=== PATIENT | male | born 1945 | race Caucasian/White ===

== ENCOUNTER 2017-09-03 11:58 | Inpatient (IN) | payer MEDICARE, OTHER ==
[~2017-09-03] VITALS: Ht 180.3 cm; Wt 90.4 kg
[2017-09-03] MEDS ORDERED: heparin 1,000 UNITS/NS 500ml 0 ML ONE (12:03)
[2017-09-03] MEDS ORDERED: iohexol 350 MG/1 ML 200ml bottle ONE (12:03)
[2017-09-03] MEDS ORDERED: LIDOcaine 1%/PF (10mg/ml) 5ml vial ONE (12:03)
[2017-09-03] MEDS ORDERED: midazolam 2 mg/2 ml injection ONE (12:03)
[2017-09-03] MEDS ORDERED: fentaNYL/PF 50MCG/1 ML 2ML syringe ONE (12:03)
[2017-09-03] MEDS ORDERED: aspirin 81mg tab.chew PO ONE (12:05)
[2017-09-03] MEDS ORDERED: heparin 10,000 units/1 ML INJ IV ONE (12:10)
[2017-09-03 12:12] LABS: BASOPHILS # (AUTO) 0.1 X10'3 (0-0.2); BASOPHILS % (AUTO) 0.7 % (0-1); EOSINOPHILS # (AUTO) 0.1 X10'3 (0-0.9); EOSINOPHILS % (AUTO) 0.8 % (0-6); HEMATOCRIT 41.8 % (42.0-52.0); HEMOGLOBIN 14.1 g/dl (14.0-17.9); LYMPHOCYTES # (AUTO) 1.8 X10'3 (1.1-4.8); LYMPHOCYTES % (AUTO) 15.8 % (21-51); MEAN CORPUSCULAR HGB CONC 33.7 % (33.0-36.5); MEAN PLATELET VOLUME 9.5 FL (7.4-10.4); MONOCYTES # (AUTO) 1.1 X10'3 (0-0.9); MONOCYTES % (AUTO) 10.1 % (2-12); NEUTROPHILS # (AUTO) 8.2 X10'3 (1.8-7.7); NEUTROPHILS % (AUTO) 72.6 % (42-75); PLATELET COUNT 175 X10'3 (140-440); RED BLOOD COUNT 4.54 X10'6 (4.70-6.10); RED CELL DISTRIBUTION WIDTH 12.6 % (11.5-14.5); WHITE BLOOD COUNT 11.3 X10'3 (4.5-11.0)
[2017-09-03 12:35] LABS: ALANINE AMINOTRANSFERASE 42 U/L (12-78); ALBUMIN 3.9 G/DL (3.4-5.0); ALBUMIN/GLOBULIN RATIO 1.1 (1.1-1.5); ALKALINE PHOSPHATASE 84 IU/L (46-116); ANION GAP 9 (8-16); ASPARTATE AMINO TRANSFERASE 73 U/L (10-37); BLOOD UREA NITROGEN 29 MG/DL (7-18); BUN/CREATININE RATIO 24.2 (5.4-32.0); CHLORIDE 101 MMOL/L (99-107); GLUCOSE 143 MG/DL (70-104); MAGNESIUM 2.1 MG/DL (1.5-2.4); POTASSIUM 4.2 MMOL/L (3.5-5.1); SODIUM 137 MMOL/L (135-145); TOTAL CARBON DIOXIDE 26.9 MMOL/L (24-32); TOTAL PROTEIN 7.4 G/DL (6.4-8.2); eGFR 60 ML/MIN
[2017-09-03 12:49] LABS: PARTIAL THROMBOPLASTIN TIME 27 SECONDS (22-32); PROTHROMBIN TIME 10.6 SECONDS (9.0-12.0)
[2017-09-03] MEDS ORDERED: normal saline 1000ML IV soln IV ONE (12:50)
[2017-09-03] MEDS ORDERED: tirofiban 5mg in NS 100mL 100 ML IV SCH (13:00)
[2017-09-03] MEDS: metoprolol tartrate 25mg tablet PO SCH ×2 (13:00→20:00)
[2017-09-03] MEDS ORDERED: magnesium 4gm in 100ml NS 100 ML IV PRN (13:10)
[2017-09-03] MEDS ORDERED: potassium Cl 40MEQ/NS 500ml 500 ML IV PRN ×2 (13:10)
[2017-09-03] MEDS ORDERED: magnesium hydroxide 30ml (MOM) UD suspension PO PRN (13:10)
[2017-09-03] MEDS ORDERED: morphine 2 MG/ML inj. syringe IV PRN ×2 (13:10)
[2017-09-03] MEDS ORDERED: acetaminophen 325mg tablet PO PRN (13:10)
[2017-09-03] MEDS ORDERED: magnesium 2GM in 50ml NS 50 ML IV PRN (13:10)
[2017-09-03] MEDS ORDERED: mag hydrox/Alum hydrox/simeth 30ml oral suspension PO PRN (13:10)
[2017-09-03] MEDS ORDERED: ondansetron/PF 4mg/2ml inj IV PRN (13:10)
[2017-09-03] MEDS ORDERED: potassium Cl 20 mEq SR tablet PO PRN ×2 (13:10)
[2017-09-03] MEDS ORDERED: glucagon, human recombinant 1mg kit SUBCUT PRN (13:20)
[2017-09-03] MEDS ORDERED: dextrose ORAL solution 15 GM/59 ML bottle PO PRN ×2 (13:20)
[2017-09-03] MEDS ORDERED: dextrose 50%-water 50ml dispensing syringe IV PRN ×2 (13:20)
[2017-09-03] MEDS ORDERED: MESSAGE TO PHARMACY PO ONE (13:20)
[2017-09-03 13:22] LABS: CHOL/HDL RATIO 2.1 (0.00-4.99); CHOLESTEROL 119 MG/DL (0-200); HDL CHOLESTEROL 57 MG/DL (35-60); LDL CHOLESTEROL 63 MG/DL (50-100); TRIGLYCERIDES 59 MG/DL (20-135)
[2017-09-03] MEDS: nitroGLYCERIN 0.4mg/hour patch TD SCH (14:31)
[2017-09-03 14:58] LABS: CLARITY,URINE CLEAR (Clear); COLOR,URINE YELLOW (Yellow); GLUCOSE, URINE NEGATIVE (Neg); KETONES,URINE NEGATIVE (Neg); LEUKOCYTE ESTERASE ,URINE NEGATIVE (Neg); NITRITES, URINE NEGATIVE (Neg); OCCULT BLOOD,URINE NEGATIVE (Neg); PH,URINE 5.5 (4.8-8.0); PROTEIN,URINE NEGATIVE (Neg); UROBILINOGEN,URINE 0.2 E.U/dL (0.2-1.0)
[2017-09-03 14:59] LABS: UA COLLECTION TYPE CLN CATCH MIDSTREAM
[2017-09-03] MEDS: cefTRIAXone 1g/NS 100ml IVPB 100 ML IV SCH (15:11)
[2017-09-03] MEDS ORDERED: LOSA25TA96 PO (15:26)
[2017-09-03] MEDS ORDERED: METF500T PO (15:26)
[2017-09-03] MEDS ORDERED: ATOR40TA PO (15:27)
[2017-09-03 15:30] VITALS: BP 123/79
[2017-09-03] MEDS ORDERED: OMEP20TA23 PO (15:30)
[2017-09-03 15:39] LABS: HEMOGLOBIN A1C 6.5 % (4.5-6.2)
[2017-09-03 19:00] VITALS: BP 113/73
[2017-09-03] MEDS: heparin 10,000 units/1 ML INJ IV PRN (20:57)
[2017-09-03] MEDS: insulin glargine (Lantus) pen - multi-dose SQ SCH (21:00)
[2017-09-03] MEDS: gabapentin 300mg capsule PO SCH (21:00)
[2017-09-03] MEDS ORDERED: pravastatin 10mg tablet PO SCH (21:00)
[2017-09-03 22:59] VITALS: BP 93/52
[2017-09-04 03:00] VITALS: BP 102/61
[2017-09-04 03:40] LABS: BASOPHILS # (AUTO) 0.1 X10'3 (0-0.2); BASOPHILS % (AUTO) 1.2 % (0-1); EOSINOPHILS # (AUTO) 0.1 X10'3 (0-0.9); EOSINOPHILS % (AUTO) 1.5 % (0-6); HEMATOCRIT 34.7 % (42.0-52.0); HEMOGLOBIN 11.9 g/dl (14.0-17.9); LYMPHOCYTES # (AUTO) 1.8 X10'3 (1.1-4.8); LYMPHOCYTES % (AUTO) 20.7 % (21-51); MEAN CORPUSCULAR HEMOGLOBIN 31.3 PG (27.0-31.0); MEAN CORPUSCULAR HGB CONC 34.3 % (33.0-36.5); MEAN CORPUSCULAR VOLUME 91.3 FL (78-98); MEAN PLATELET VOLUME 9.9 FL (7.4-10.4); MONOCYTES # (AUTO) 0.8 X10'3 (0-0.9); MONOCYTES % (AUTO) 9.3 % (2-12); NEUTROPHILS # (AUTO) 5.8 X10'3 (1.8-7.7); NEUTROPHILS % (AUTO) 67.3 % (42-75); PLATELET COUNT 144 X10'3 (140-440); RED CELL DISTRIBUTION WIDTH 12.6 % (11.5-14.5); WHITE BLOOD COUNT 8.6 X10'3 (4.5-11.0)
[2017-09-04 03:58] LABS: ALANINE AMINOTRANSFERASE 33 U/L (12-78); ALBUMIN 3.2 G/DL (3.4-5.0); ALKALINE PHOSPHATASE 68 IU/L (46-116); ANION GAP 7 (8-16); ASPARTATE AMINO TRANSFERASE 51 U/L (10-37); BILIRUBIN,TOTAL 0.7 MG/DL (0.1-1.0); BLOOD UREA NITROGEN 28 MG/DL (7-18); BUN/CREATININE RATIO 21.5 (5.4-32.0); CALCIUM 8.3 MG/DL (8.5-10.1); CHLORIDE 103 MMOL/L (99-107); CHOL/HDL RATIO 2.4 (0.00-4.99); CHOLESTEROL 106 MG/DL (0-200); GLUCOSE 147 MG/DL (70-104); HDL CHOLESTEROL 45 MG/DL (35-60); LDL CHOLESTEROL 52 MG/DL (50-100); POTASSIUM 4.2 MMOL/L (3.5-5.1); SODIUM 136 MMOL/L (135-145); TOTAL CARBON DIOXIDE 26.3 MMOL/L (24-32); TOTAL PROTEIN 6.4 G/DL (6.4-8.2); TRIGLYCERIDES 66 MG/DL (20-135); eGFR 54 ML/MIN
[2017-09-04 04:17] LABS: TROPONIN I 8.37 NG/ML (0.0-0.05)
[2017-09-04 06:00] VITALS: BP 106/64
[2017-09-04] MEDS ORDERED: diphenhydrAMINE 50 mg/ml inj IV ONE ×2 (07:50→21:00)
[2017-09-04] MEDS ORDERED: methylPREDNISolone sod succ 125mg/2ml vial IV ONE ×2 (07:50→21:00)
[2017-09-04] MEDS: K and/or MAG REPLACEMENT MC SCH (08:00)
[2017-09-04] MEDS ORDERED: non-formulary drug (Atorvastatin Calcium* (Lipitor*) 1 TAB) PO SCH (08:00)
[2017-09-04] MEDS: gabapentin 300mg capsule PO SCH ×2 (08:30→20:55)
[2017-09-04] MEDS: metoprolol tartrate 25mg tablet PO SCH ×2 (08:30→20:56)
[2017-09-04] MEDS: nitroGLYCERIN 0.4mg/hour patch TD SCH (08:30)
[2017-09-04] MEDS: aspirin 81mg tab.chew PO SCH (08:30)
[2017-09-04] MEDS: atorvastatin 20mg tablet PO SCH (08:31)
[2017-09-04] MEDS: pantoprazole 40mg Tablet.DR PO SCH (08:53)
[2017-09-04] MEDS: heparin 10,000 units/1 ML INJ IV PRN (10:31)
[2017-09-04] MEDS: cefTRIAXone 1g/NS 100ml IVPB 100 ML IV SCH (10:50)
[2017-09-04 11:00] VITALS: BP 108/73
[2017-09-04 15:00] VITALS: BP 99/59
[2017-09-04 19:00] VITALS: BP 118/66
[2017-09-04] MEDS: insulin Lispro (HumaLOG) vial - multi-dose SQ SCH (19:02)
[2017-09-04] MEDS: lactobacillus rhamnosus 10,000 MMU CELLS/CAPSULE PO SCH (20:56)
[2017-09-04] MEDS: insulin glargine (Lantus) pen - multi-dose SQ SCH (21:06)
[2017-09-04 23:00] VITALS: BP 115/67
[2017-09-05] VITALS (16 sets, daily range): BP systolic 100–134; BP diastolic 59–87
[2017-09-05 05:05] LABS: BASOPHILS % (AUTO) 0.1 % (0-1); EOSINOPHILS # (AUTO) 0.2 X10'3 (0-0.9); EOSINOPHILS % (AUTO) 1.3 % (0-6); HEMATOCRIT 37.7 % (42.0-52.0); MEAN CORPUSCULAR HEMOGLOBIN 31.7 PG (27.0-31.0); MEAN CORPUSCULAR HGB CONC 34.4 % (33.0-36.5); MEAN CORPUSCULAR VOLUME 92.3 FL (78-98); MONOCYTES # (AUTO) 0.2 X10'3 (0-0.9); MONOCYTES % (AUTO) 1.9 % (2-12); NEUTROPHILS # (AUTO) 10.6 X10'3 (1.8-7.7); NEUTROPHILS % (AUTO) 88.7 % (42-75); PLATELET COUNT 155 X10'3 (140-440); RED BLOOD COUNT 4.09 X10'6 (4.70-6.10); RED CELL DISTRIBUTION WIDTH 12.4 % (11.5-14.5); WHITE BLOOD COUNT 11.9 X10'3 (4.5-11.0)
[2017-09-05 05:47] LABS: ALANINE AMINOTRANSFERASE 33 U/L (12-78); ALBUMIN 3.3 G/DL (3.4-5.0); ALBUMIN/GLOBULIN RATIO 0.9 (1.1-1.5); ALKALINE PHOSPHATASE 76 IU/L (46-116); ANION GAP 11 (8-16); ASPARTATE AMINO TRANSFERASE 32 U/L (10-37); BILIRUBIN,TOTAL 0.4 MG/DL (0.1-1.0); BLOOD UREA NITROGEN 33 MG/DL (7-18); BUN/CREATININE RATIO 25.4 (5.4-32.0); CALCIUM 8.9 MG/DL (8.5-10.1); CHLORIDE 103 MMOL/L (99-107); GLUCOSE 251 MG/DL (70-104); MAGNESIUM 2.1 MG/DL (1.5-2.4); POTASSIUM 4.2 MMOL/L (3.5-5.1); SODIUM 138 MMOL/L (135-145); TOTAL CARBON DIOXIDE 23.9 MMOL/L (24-32); TOTAL PROTEIN 7.1 G/DL (6.4-8.2); eGFR 54 ML/MIN
[2017-09-05] MEDS ORDERED: iohexol 350MG/ML 100ml bottle IV ONE (05:53)
[2017-09-05] MEDS ORDERED: LIDOcaine 1%/PF (10mg/ml) 5ml vial ONE (05:53)
[2017-09-05] MEDS ORDERED: diphenhydrAMINE 50 mg/ml inj IM ONE (06:00)
[2017-09-05] MEDS ORDERED: methylPREDNISolone sod succ 125mg/2ml vial IV ONE (06:00)
[2017-09-05] MEDS ORDERED: fentaNYL/PF 50MCG/1 ML 2ML syringe ONE (06:23)
[2017-09-05] MEDS ORDERED: midazolam 2 mg/2 ml injection ONE (06:24)
[2017-09-05] MEDS ORDERED: heparin 1,000unit/ml 10ml vial 10 ML ONE (06:45)
[2017-09-05] MEDS ORDERED: iohexol 350 MG/ML 50ML vial IV ONE (06:54)
[2017-09-05] MEDS ORDERED: ticagrelor 90mg tablet ONE (06:56)
[2017-09-05] MEDS ORDERED: proCHLORperazine 10 MG/2 ml inj IV PRN (07:40)
[2017-09-05] MEDS ORDERED: HYDROcodone/acetaminophen 5mg/325mg tablet PO PRN (07:40)
[2017-09-05] MEDS ORDERED: nitroGLYCERIN 0.4mg SUBLingual tab SL PRN (07:40)
[2017-09-05] MEDS ORDERED: aspirin 81mg tab.chew PO ONE (07:40)
[2017-09-05] MEDS ORDERED: HYDROcodone/acetaminophen 10/325mg tab PO PRN (07:40)
[2017-09-05] MEDS ORDERED: normal saline 1000ml 1,000 ML IV SCH (07:40)
[2017-09-05] MEDS ORDERED: OXAZEpam 15mg capsule PO PRN (07:40)
[2017-09-05] MEDS: cefTRIAXone 1g/NS 100ml IVPB 100 ML IV SCH (07:54)
[2017-09-05] MEDS: metoprolol tartrate 25mg tablet PO SCH (07:56)
[2017-09-05] MEDS: pantoprazole 40mg Tablet.DR PO SCH (07:56)
[2017-09-05] MEDS: lactobacillus rhamnosus 10,000 MMU CELLS/CAPSULE PO SCH (07:56)
[2017-09-05] MEDS: gabapentin 300mg capsule PO SCH (07:56)
[2017-09-05] MEDS: K and/or MAG REPLACEMENT MC SCH (08:00)
[2017-09-05] MEDS: nitroGLYCERIN 0.4mg/hour patch TD SCH (08:00)
[2017-09-05] MEDS: atorvastatin 20mg tablet PO SCH (08:04)
[2017-09-05] MEDS: aspirin 81mg tab.chew PO SCH (08:05)
[2017-09-05] MEDS: insulin Lispro (HumaLOG) vial - multi-dose SQ SCH (08:30)
[2017-09-05] MEDS ORDERED: METO25TA6 PO (10:09)
[2017-09-05] MEDS ORDERED: ASPI-1265 PO (10:09)
[2017-09-05] MEDS ORDERED: NITR0.4T51 SL (10:09)
[2017-09-05] MEDS ORDERED: PRAV20TA4 PO (10:09)
[2017-09-05] MEDS ORDERED: TICA90TA PO (10:09)
[2017-09-05] MEDS ORDERED: CEPH250T PO (10:11)
[2017-09-05] MEDS ORDERED: CefTRIAXone 1 gm/50ml D5W ADV 50 ML IV SCH (12:21)
[2017-09-06] MEDS ORDERED: ticagrelor 90mg tablet PO SCH (08:00)
== END 2017-09-05 13:25 | disposition home or self-care (01) | DRG 246 ==
LOC: ER 11:58 → ED HOLD 13:07 → EDBEDREQ 13:56 → PCU 3S 15:44
PROVIDERS: ADMIT Family Medicine; ATTEND Family Medicine
PROC: 027034Z Dilation of Coronary Artery, One Artery with Drug-eluting Intraluminal Device, Percutaneous Approach (ICD-10-PCS; principal; 2017-09-05)
PROC: 4A023N7 Measurement of Cardiac Sampling and Pressure, Left Heart, Percutaneous Approach (ICD-10-PCS; 2017-09-05)
PROC: B2111ZZ Fluoroscopy of Multiple Coronary Arteries using Low Osmolar Contrast (ICD-10-PCS; 2017-09-05)
PROC: B2151ZZ Fluoroscopy of Left Heart using Low Osmolar Contrast (ICD-10-PCS; 2017-09-05)
DX: I21.4 Non-ST elevation (NSTEMI) myocardial infarction (principal); I50.23 Acute on chronic systolic (congestive) heart failure; E11.42 Type 2 diabetes mellitus with diabetic polyneuropathy; I11.0 Hypertensive heart disease with heart failure; E78.00 Pure hypercholesterolemia, unspecified; E78.5 Hyperlipidemia, unspecified; K21.9 Gastro-esophageal reflux disease without esophagitis; Z88.2 Allergy status to sulfonamides; Z91.041 Radiographic dye allergy status; Z79.899 Other long term (current) drug therapy; Z79.01 Long term (current) use of anticoagulants; Z79.4 Long term (current) use of insulin; Z79.84 Long term (current) use of oral hypoglycemic drugs; Z79.82 Long term (current) use of aspirin; Z87.892 Personal history of anaphylaxis; Z80.0 Family history of malignant neoplasm of digestive organs; Z83.3 Family history of diabetes mellitus; Z82.49 Family history of ischemic heart disease and other diseases of the circulatory system
CPT/HCPCS: 93306; 93458; 96374; 99285; C9600; 36415; 71045; 80053; 80061; 81003; 82948; 83036; 83605; 83735; 83880; 84145; 84484; 85025; 85610; 85730; 87040; 87070; 87502; 87503; 93005; 99152; 99153; A4620; A6257; C1725; C1760; C1769; C1874; J0696; J1200; J1644; J1815; J2001; J2250; J2930; J3010; J7030; Q9967